=== PATIENT | male | born 1940 | race Caucasian/White ===

== ENCOUNTER → 2017-01-07 | Outpatient (CLI) | payer OTHER ==
[2011-04-07 19:28] VITALS: BP 143/88
== END ==
LOC: MMPC 09:00
PROVIDERS: ATTEND Family Medicine
DX: Z01.89 Encounter for other specified special examinations (principal); E78.5 Hyperlipidemia, unspecified; L72.9 Follicular cyst of the skin and subcutaneous tissue, unspecified
CPT/HCPCS: G0439